=== PATIENT | male | born 1950 | race African-American/Black ===

== ENCOUNTER 2018-10-19 21:03 | Emergency (ER) | payer MEDICARE ==
--- NOTE | 2018-10-19 21:21 | ER Report ---
History and Physical Time Seen By MD: 21:20 HPI/ROS CHIEF COMPLAINT: Fall, syncopal episode HISTORY OF PRESENT ILLNESS: Patient patient is a 68-year-old male here status post fall after syncopal episode while in the parking lot of a grocery store. Patient reportedly fell and struck his face and shoulder on the bumper of a car. Patient reports prior episodes of similar events. Patient reportedly recently moved to the area 2 days prior. Patient is afebrile, hemodynamically stable, alert and oriented, neurovascularly intact in the distal upper extremities. Denies fevers, chills, chest pain, shortness of breath, nausea, vomiting REVIEW OF SYSTEMS: Constitutional: No fever, no chills. Eyes: No discharge. ENT: No sore throat. + Contusion and edema to the left cheek Cardiovascular: No chest pain, no palpitations. Respiratory: No cough, no shortness of breath. Gastrointestinal: No abdominal pain, no vomiting. Genitourinary: No hematuria. Musculoskeletal: + Left shoulder pain and clavicular deformity Skin: No rashes. Neurological: No headache. No focal neurological findings Allergies: Coded Allergies: No Known Drug Allergies (Unverified , 10/19/18) Home Meds Active Scripts Oxycodone Hcl/Acetaminophen (PERCOCET 5-325 MG TABLET) 1 Each Tablet, 1 EACH PO Q4H PRN for PAIN, #12 TAB 0 Refills Prov:KESHA COBB DO 10/20/18 Doxycycline Hyclate (DOXYCYCLINE HYCLATE) 100 Mg Tablet, 100 MG PO BID for 7 Days, #13 TAB Prov:KESHA COBB DO 10/20/18 Constitutional Vital Sign - Last 24 Hours 10/19/18 10/19/18 10/19/18 10/19/18 21:18 21:18 21:30 21:33 Temp 98.8 Pulse 118 121 115 Resp 16 B/P (MAP) 138/67 126/55 (78) Pulse Ox 91 90 88 O2 Delivery Room Air 10/19/18 10/19/18 10/19/18 10/19/18 21:48 22:18 22:30 22:33 Pulse 119 109 110 B/P (MAP) 117/67 (84) Pulse Ox 89 89 91 10/19/18 10/19/18 10/19/18 10/19/18 22:48 22:53 23:00 23:08 Pulse 102 101 100 B/P (MAP) 109/60 (76) Pulse Ox 87 87 86 10/19/18 10/19/18 10/19/18 10/19/18 23:23 23:30 23:38 23:53 Pulse 99 118 117 B/P (MAP) 123/64 (83) Pulse Ox 91 89 91 Physical Exam General Appearance: The patient is alert, has no immediate need for airway protection and no signs of toxicity. No acute distress Eyes: Pupils equal and round no pallor or injection. ENT, Mouth: Mucous membranes are moist. Respiratory: There are no retractions, lungs are clear to auscultation. Cardiovascular: Regular rate and rhythm. Gastrointestinal: Abdomen is soft and non tender, no masses, bowel sounds normal. Neurological: No focal neurological findings Skin: Warm and dry, no rashes. Musculoskeletal: Neck is supple non tender. + Left clavicular deformity, tenderness on range of motion testing of the left shoulder DIFFERENTIAL DIAGNOSIS: After history and physical exam differential diagnosis was considered for contusion, fracture, abrasion, arrhythmia, dehydration, electrolyte abnormality Medical Decision Making Data Points Result Diagram: 10/19/18223010/19/182230 Laboratory Hematology Test 10/19/18 22:31 Red Blood Count 3.47 M/uL (4.00-5.60) Mean Corpuscular Volume 97.5 fL (80.0-96.0) Mean Corpuscular Hemoglobin 32.8 pg (26.0-33.0) Mean Corpuscular Hemoglobin Concent 33.7 g/dL (32.0-36.0) Red Cell Distribution Width 13.2 % (11.5-14.5) Mean Platelet Volume 7.9 fL (7.2-11.1) Neutrophils (%) (Auto) 85.5 % (39.4-72.5) Lymphocytes (%) (Auto) 8.2 % (17.6-49.6) Monocytes (%) (Auto) 6.0 % (4.1-12.4) Eosinophils (%) (Auto) 0.0 % (0.4-6.7) Basophils (%) (Auto) 0.3 % (0.3-1.4) Nucleated RBC Relative Count (auto) 0.0 /100WBC Neutrophils # (Auto) 8.8 K/uL (2.0-7.4) Lymphocytes # (Auto) 0.8 K/uL (1.3-3.6) Monocytes # (Auto) 0.6 K/uL (0.3-1.0) Eosinophils # (Auto) 0.0 K/uL (0.0-0.5) Basophils # (Auto) 0.0 K/uL (0.0-0.1) Nucleated RBC Absolute Count (auto) 0.01 K/uL Sodium Level 142 mmol/L (137-145) Potassium Level 3.3 mmol/L (3.5-5.0) Chloride Level 106 mmol/L (98-107) Carbon Dioxide Level 23 mmol/L (22-30) Blood Urea Nitrogen 13 mg/dl (9-21) Creatinine 1.10 mg/dl (0.66-1.25) Glomerular Filtration Rate Calc > 60.0 Random Glucose 103 mg/dl (75-110) Calcium Level 9.1 mg/dl (8.4-10.2) Total Bilirubin 0.5 mg/dl (0.2-1.3) Aspartate Amino Transf (AST/SGOT) 45 U/L (0-35) Alanine Aminotransferase (ALT/SGPT) 24 U/L (0-56) Alkaline Phosphatase 60 U/L (0-126) Total Protein 8.1 g/dl (6.3-8.2) Albumin 4.8 g/dl (3.5-5.0) Chemistry Test 10/19/18 22:31 White Blood Count 10.3 k/uL (4.5-11.0) Red Blood Count 3.47 M/uL (4.00-5.60) Hemoglobin 11.4 g/dL (14.0-18.0) Hematocrit 33.8 % (42.0-52.0) Mean Corpuscular Volume 97.5 fL (80.0-96.0) Mean Corpuscular Hemoglobin 32.8 pg (26.0-33.0) Mean Corpuscular Hemoglobin Concent 33.7 g/dL (32.0-36.0) Red Cell Distribution Width 13.2 % (11.5-14.5) Platelet Count 207 K/uL (150-450) Mean Platelet Volume 7.9 fL (7.2-11.1) Neutrophils (%) (Auto) 85.5 % (39.4-72.5) Lymphocytes (%) (Auto) 8.2 % (17.6-49.6) Monocytes (%) (Auto) 6.0 % (4.1-12.4) Eosinophils (%) (Auto) 0.0 % (0.4-6.7) Basophils (%) (Auto) 0.3 % (0.3-1.4) Nucleated RBC Relative Count (auto) 0.0 /100WBC Neutrophils # (Auto) 8.8 K/uL (2.0-7.4) Lymphocytes # (Auto) 0.8 K/uL (1.3-3.6) Monocytes # (Auto) 0.6 K/uL (0.3-1.0) Eosinophils # (Auto) 0.0 K/uL (0.0-0.5) Basophils # (Auto) 0.0 K/uL (0.0-0.1) Nucleated RBC Absolute Count (auto) 0.01 K/uL Glomerular Filtration Rate Calc > 60.0 Calcium Level 9.1 mg/dl (8.4-10.2) Total Bilirubin 0.5 mg/dl (0.2-1.3) Aspartate Amino Transf (AST/SGOT) 45 U/L (0-35) Alanine Aminotransferase (ALT/SGPT) 24 U/L (0-56) Alkaline Phosphatase 60 U/L (0-126) Total Protein 8.1 g/dl (6.3-8.2) Albumin 4.8 g/dl (3.5-5.0) EKG/Imaging EKG Interpretation PATIENT NAME: CARROL THOMAS : [id number] MR: [id number] V: [id number] EXAM DATE: ORDERING PHYSICIAN: KESHA COBB TECHNOLOGIST: SADIQ Test Reason : SYNCOPE Blood Pressure : / mmHG Vent. Rate : 112 BPM Atrial Rate : 112 BPM P-R Int : 130 ms QRS Dur : 074 ms QT Int : 392 ms P-R-T Axes : 059 077 076 degrees QTc Int : 535 ms Sinus tachycardia Otherwise normal ECG No previous ECGs available Confirmed by Randall Red ([id number]) on 10/19/2018 11:27:58 PM Referred By: Confirmed By:Randall Mcdonald Imaging Location: [facility] Patient: Carrol Thomas : 1950 Visit/Account:[id number] Date of Sevice: 10/19/2018 SHOULDER MIN 2 VIEWS LEFT, CLAVICLE LEFT HISTORY: Fall. Trauma. COMPARISON: None. TECHNIQUE: AP and scapular Y views of the left shoulder. AP and AP axial views of the left clavicle. FINDINGS: LEFT SHOULDER There is no fracture or dislocation. There are healed fractures of the anterolateral fourth through sixth left ribs. There is mild apical scarring or thickening at the left apex. No pneumothorax. LEFT CLAVICLE There is a comminuted mid left clavicle fracture. Butterfly fragment is inferio rly displaced. No acromioclavicular joint separation. IMPRESSION: 1. Comminuted mid left clavicle fracture. 2. No acute osseous abnormality of the left shoulder. PATIENT NAME: Carrol Thomas : 1950 MR: [id number] V: [id number] EXAM DATE: ORDERING PHYSICIAN: KESHA COBB TECHNOLOGIST: Location: [facility] Patient: Carrol Thomas : 1950 Visit/Account:[id number] Date of Sevice: 10/19/2018 CT BRAIN NO CONTRAST HISTORY: Syncope. Fall. Trauma. COMPARISON: None. TECHNIQUE: Axial images were obtained from the skull base to the vertex without contrast. Sagittal and coronal reformats were performed. One of the following dose optimization techniques was utilized in the performance of this exam: Automated exposure control; adjustment of the mA and/or kV according to the patient's size; or use of an iterative reconstruction technique. Specific details can be referenced in the facility's radiology CT exam operational policy. CONTRAST: None. FINDINGS: Brain: No intracranial hemorrhage, mass, or edema. There are nonspecific periventricular and subcortical white matter low attenuation foci, mild in severity. Ventricles and sulci: Sulci are prominent, compatible with mild atrophy, normal for age. Ventricular size and configuration is normal. Osseous structures: Intact. There is mild degenerative change of the temporomandibular joints. Paranasal sinuses and mastoids: There is moderate to severe opacification of the right maxillary sinus, and there is right maxillary sinus atelectasis. No nasal septal deviation. Mastoids are clear. Orbits and soft tissues: Normal. IMPRESSION: 1. No acute intracranial abnormality. 2. Right maxillary sinus atelectasis with moderate to severe opacification. PATIENT NAME: Carrol Thomas : 1950 MR: [id number] V: [id number] EXAM DATE: ORDERING PHYSICIAN: KESHA COBB TECHNOLOGIST: Location: [facility] Patient: Carrol Thomas : 1950 Visit/Account:[id number] Date of Sevice: 10/19/2018 SHOULDER MIN 2 VIEWS LEFT, CLAVICLE LEFT HISTORY: Fall. Trauma. COMPARISON: None. TECHNIQUE: AP and scapular Y views of the left shoulder. AP and AP axial views of the left clavicle. FINDINGS: LEFT SHOULDER There is no fracture or dislocation. There are healed fractures of the anterolateral fourth through sixth left ribs. There is mild apical scarring or thickening at the left apex. No pneumothorax. LEFT CLAVICLE There is a comminuted mid left clavicle fracture. Butterfly fragment is inferiorly displaced. No acromioclavicular joint separation. IMPRESSION: 1. Comminuted mid left clavicle fracture. 2. No acute osseous abnormality of the left shoulder. ED Course/Re-evaluation ED Course Patient is a 68-year-old male here status post syncopal episode. EKG showed no signs of arrhythmia. CT of the head showed no acute fractures or intracranial bleeding however there was a noted opacity of the maxillary sinus consistent with sinusitis for which the patient will be treated with doxycycline. CBC, CMP were unremarkable. X-ray of the shoulder was unremarkable, clavicular x-ray showed comminuted fracture of the clavicle, patient was placed in sling for comfort. Recommend close follow-up with orthopedics for further evaluation. Patient was neurovascularly intact in the distal upper extremity at time of evaluation. Patient was given a prescription for Percocet for pain control. Return precautions provided. Recommend PCP follow-up and neurology follow-up. Decision to Disposition Date: Oct 19, 2018 Decision to Disposition Time: 23:53 Depart Departure Latest Vital Signs Vital Signs Date Time Temp Pulse Resp B/P (MAP) Pulse Ox O2 Delivery O2 Flow Rate FiO2 10/19/18 23:53 117 91 10/19/18 23:30 123/64 (83) 10/19/18 21:18 98.8 16 Room Air Impression: Primary Impression: Clavicle fracture, shaft Additional Impressions: Syncope Sinusitis Condition: Improved Disposition: HOME OR SELF-CARE New Scripts Oxycodone Hcl/Acetaminophen (PERCOCET 5-325 MG TABLET) 1 Each Tablet 1 EACH PO Q4H PRN for PAIN, #12 TAB 0 Refills Prov: KESHA COBB DO 10/20/18 Doxycycline Hyclate (DOXYCYCLINE HYCLATE) 100 Mg Tablet 100 MG PO BID for 7 Days, #13 TAB Prov: KESHA COBB DO 10/20/18 Patient Instructions: Clavicle Fracture (ED), Sinusitis (ED), Syncope (ED) Additional Instructions: Please follow up with orthopedics in 1 week at [facility]. Your diagnoses with a clavicular fracture, please keep the sling in place until you're followed up by orthopedics. Please consider establishing a primary care doctor and following up with neurology to further evaluate your episodes of loss of consciousness. Please take doxycycline 1 tablet twice daily for 7 days for treatment of sinusitis. Please drink plenty of water. Please return immediately if you develop recurrent episodes. [facility] Problem Qualifiers KESHA COBB DO Oct 19, 2018 21:21
--- NOTE | 2018-10-19 21:45 | EKG ---
FACILITY: [facility] PATIENT NAME: CARROL MATTHEWS : [id number] MR: [id number] V: [id number] EXAM DATE: ORDERING PHYSICIAN: KESHA COBB TECHNOLOGIST: SADIQ Test Reason : SYNCOPE Blood Pressure : / mmHG Vent. Rate : 112 BPM Atrial Rate : 112 BPM P-R Int : 130 ms QRS Dur : 074 ms QT Int : 392 ms P-R-T Axes : 059 077 076 degrees QTc Int : 535 ms Sinus tachycardia Otherwise normal ECG No previous ECGs available Confirmed by Randall Red ([id number]) on 10/19/2018 11:27:58 PM Referred By: Confirmed By:Randall Mcdonald
[2018-10-19 22:39] LABS: PLATELET COUNT, AUTOMATED 207 K/uL (150-450)
--- NOTE | 2018-10-19 22:46 | RADIOLOGY IMAGING REPORT ---
FACILITY: [facility] PATIENT NAME: Aries Thomas : 1950 MR: [id number] V: [id number] EXAM DATE: ORDERING PHYSICIAN: KESHA COBB TECHNOLOGIST: Location: [facility] Patient: Aries Thomas : 1950 Visit/Account:[id number] Date of Sevice: 10/19/2018 SHOULDER MIN 2 VIEWS LEFT, CLAVICLE LEFT HISTORY: Fall. Trauma. COMPARISON: None. TECHNIQUE: AP and scapular Y views of the left shoulder. AP and AP axial views of the left clavicle. FINDINGS: LEFT SHOULDER There is no fracture or dislocation. There are healed fractures of the anterolateral fourth through s ixth left ribs. There is mild apical scarring or thickening at the left apex. No pneumothorax. LEFT CLAVICLE There is a comminuted mid left clavicle fracture. Butterfly fragment is inferiorly displaced. No acro mioclavicular joint separation. IMPRESSION: 1. Comminuted mid left clavicle fracture. 2. No acute osseous abnormality of the left shoulder. Report Dictated By: Demi Reid at 10/19/2018 10:39 PM Report E-Signed By: Demi Reid at 10/19/2018 10:43 PM WSN:[id number]
--- NOTE | 2018-10-19 22:47 | RADIOLOGY IMAGING REPORT ---
FACILITY: [facility] PATIENT NAME: Aries Thomas : 1950 MR: [id number] V: [id number] EXAM DATE: ORDERING PHYSICIAN: KESHA COBB TECHNOLOGIST: Location: [facility] Patient: Aries Thomas : 1950 Visit/Account:[id number] Date of Sevice: 10/19/2018 SHOULDER MIN 2 VIEWS LEFT, CLAVICLE LEFT HISTORY: Fall. Trauma. COMPARISON: None. TECHNIQUE: AP and scapular Y views of the left shoulder. AP and AP axial views of the left clavicle. FINDINGS: LEFT SHOULDER There is no fracture or dislocation. There are healed fractures of the anterolateral fourth through s ixth left ribs. There is mild apical scarring or thickening at the left apex. No pneumothorax. LEFT CLAVICLE There is a comminuted mid left clavicle fracture. Butterfly fragment is inferiorly displaced. No acro mioclavicular joint separation. IMPRESSION: 1. Comminuted mid left clavicle fracture. 2. No acute osseous abnormality of the left shoulder. Report Dictated By: Demi Reid at 10/19/2018 10:39 PM Report E-Signed By: Demi Reid at 10/19/2018 10:43 PM WSN:[id number]
--- NOTE | 2018-10-19 22:50 | RADIOLOGY IMAGING REPORT ---
FACILITY: [facility] PATIENT NAME: Aries Thomas : 1950 MR: [id number] V: [id number] EXAM DATE: ORDERING PHYSICIAN: KESHA COBB TECHNOLOGIST: [place] [facility] [place] Aries Thomas : 1950 Visit/Account:[id number] Date of Sevice: 10/19/2018 CT BRAIN NO CONTRAST HISTORY: Syncope. Fall. Trauma. COMPARISON: None. TECHNIQUE: Axial images were obtained from the skull base to the vertex without contrast. Sagittal an d coronal reformats were performed. One of the following dose optimization techniques was utilized in the performance of this exam: Autom ated exposure control; adjustment of the mA and/or kV according to the patient's size; or use of an i terative reconstruction technique. Specific details can be referenced in the facility's radiology CT exam operational policy. CONTRAST: None. FINDINGS: Brain: No intracranial hemorrhage, mass, or edema. There are nonspecific periventricular and subcorti cesar white matter low attenuation foci, mild in severity. Ventricles and sulci: Sulci are prominent, compatible with mild atrophy, normal for age. Ventricular size and configuration is normal. Osseous structures: Intact. There is mild degenerative change of the temporomandibular joints. Paranasal sinuses and mastoids: There is moderate to severe opacification of the right maxillary sinu s, and there is right maxillary sinus atelectasis. No nasal septal deviation. Mastoids are clear. Orbits and soft tissues: Normal. IMPRESSION: 1. No acute intracranial abnormality. 2. Right maxillary sinus atelectasis with moderate to severe opacification. Report Dictated By: Demi Reid at 10/19/2018 10:43 PM Report E-Signed By: Demi Reid at 10/19/2018 10:46 PM WSN:[id number]
[2018-10-19 23:30] VITALS: BP 123/64
[2018-10-19] MEDS ORDERED: DOXYCYCLINE HYCL 100 MG TAB PO ONE (23:55)
[2018-10-19] MEDS ORDERED: oxyCODONE/ACETAMIN 5/325MG TH 2 TAB/BOTTLE PO ONE (23:55)
[2018-10-20] MEDS ORDERED: DOXY-179 PO (00:03)
[2018-10-20] MEDS ORDERED: OXYC-865 PO (00:03)
== END 2018-10-20 00:12 | disposition home or self-care (01) ==
LOC: ER 21:24
DX: R55 Syncope and collapse (principal); S42.022A Displaced fracture of shaft of left clavicle, initial encounter for closed fracture; W18.30XA Fall on same level, unspecified, initial encounter; J32.9 Chronic sinusitis, unspecified
CPT/HCPCS: 70450; 73000; 73030; 85025; 93005; 99284; A4565; A9270; 82040; 82247; 82310; 82374; 82435; 82565; 82947; 84075; 84132; 84155; 84295; 84450; 84460; 84520